=== PATIENT | female | born 1985 | race American Indian/Alaskan Native ===

== ENCOUNTER 2016-11-29 12:25 | Emergency (ER) | payer MEDICAID ==
[2016-11-29] MEDS ORDERED: DUONEB 0.5 MG-3 MG/3 ML SOLN IH ONE (14:24)
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
[2016-11-29 16:13] VITALS: BP 116/81
== END 2016-11-29 16:23 | disposition home or self-care (01) ==
LOC: ED 12:25
DX: J45.909 Unspecified asthma, uncomplicated (principal); Z90.89 Acquired absence of other organs; Z91.018 Allergy to other foods

== ENCOUNTER 2019-01-27 21:04 | Emergency (ER) | payer MEDICAID, OTHER ==
[2019-01-27] MEDS ORDERED: IBUPROFEN PO ONE (21:26)
[2019-01-27] MEDS ORDERED: ULTRAM PO ONE (21:27)
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
[2019-01-27 21:53] VITALS: BP 138/97
[2019-01-28 00:13] LABS: HCG Qualitative,Urine Negative (Negative)
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
== END 2019-01-28 02:04 | disposition home or self-care (01) ==
LOC: ED 21:04
DX: S39.012A Strain of muscle, fascia and tendon of lower back, initial encounter (principal); S80.02XA Contusion of left knee, initial encounter; J45.909 Unspecified asthma, uncomplicated; Z91.018 Allergy to other foods; V49.49XA Driver injured in collision with other motor vehicles in traffic accident, initial encounter; Y93.89 Activity, other specified; Y92.488 Other paved roadways as the place of occurrence of the external cause; Y99.8 Other external cause status
CPT/HCPCS: 72100; 81025; 99284

== ENCOUNTER 2019-03-11 16:15 | Emergency (ER) | payer MEDICAID ==
[2019-03-11] MEDS ORDERED: DUONEB *Not for PRN Use IH ONE (16:49)
[2019-03-11] MEDS ORDERED: DELTASONE PO ONE (16:49)
--- NOTE | 2019-03-11 16:49 | Emergency Department Report ---
Blank Doc - Documentation Documentation: This is a 33-year-old female that presents with asthma exacerbation. Exam: wheezing This initial assessment/diagnostic orders/clinical plan/treatment(s) is/are subject to change based on patient's health status, clinical progression and re- assessment by fellow clinical providers in the ED. Further treatment and workup at subsequent clinical providers discretion. Patient/guardians urged not to elope from the ED as their condition may be serious if not clinically assessed and managed. Initial orders include: 1- Patient sent to [facility] for further evaluation and treatment 2- breathing treatment/steroids
--- NOTE | 2019-03-11 18:14 | XRay Report ---
PROCEDURE: XR CHEST ROUTINE 2V TECHNIQUE: PA and lateral chest radiographs were obtained. HISTORY: sob COMPARISONS: None. FINDINGS: Heart: Normal. Mediastinum/Vessels: Normal. Lungs/Pleural space: No infiltrate, effusion, or pneumothorax. Bony thorax: No acute osseous abnormality. IMPRESSION: No pulmonary infiltrates are identified. This document is electronically signed by Marianna Ortega MD., March 11 2019 06:12:26 PM ET
[2019-03-11] MEDS ORDERED: PROVENTIL IH ONE (19:14)
[2019-03-11 19:21] VITALS: BP 105/64
--- NOTE | 2019-03-11 20:35 | Emergency Department Report ---
- General Chief Complaint: Dyspnea/Respdistress Stated Complaint: ASTHMA/EMILIE Time Seen by Provider: 03/11/19 16:47 Source: patient Mode of arrival: Ambulatory Limitations: No Limitations - History of Present Illness Initial Comments: This is a 33-year-old female that presents with asthma exacerbation. symptoms include cough productive yellow thick congestion wheezing no fever no n/v no dizziness no cp no back pain symptoms exacerbated by environmental exposure symptoms relieved by rest and albuterol inhaler. MD Complaint: rhinorrhea, nasal congestion, sinus pain Onset/Timin -: days(s) Severity: moderate Severity scale (0 -10): 5 Quality: other (wheezing ) Consistency: intermittent Improves With: other (albuterol ) Worsens With: activity, other (environmental exposure ) Associated Symptoms: chills, myalgias, rhinorrhea, nasal congestion, sore throat, cough - Related Data Previous Rx's Medication Instructions Recorded Last Taken Type Cetirizine HCl [ZyrTEC] 10 mg PO DAILY #30 tab.chew 06/15/16 Unknown Rx Albuterol Sulfate [Ventolin HFA] 2 puff IH Q4H PRN #1 hfa.aer.ad 11/29/16 Unknown Rx predniSONE [Deltasone] 30 mg PO QDAY #15 tab 11/29/16 Unknown Rx Naproxen [Naprosyn] 500 mg PO BID #20 tablet 01/28/19 Unknown Rx methOCARBAMOL [Robaxin TAB] 500 mg PO Q8HR PRN #20 tablet 01/28/19 Unknown Rx ALBUTEROL Inhaler (OR & NICU) 2 puff IH QID PRN #1 inhalation 03/11/19 Unknown Rx [ProAir HFA Inhaler] Azithromycin [Zithromax Z-AMY] 250 mg PO DAILY #6 tab 03/11/19 Unknown Rx Benzonatate [Tessalon Perles] 100 mg PO Q8HR PRN #30 capsule 03/11/19 Unknown Rx Ibuprofen [Motrin 800 MG tab] 800 mg PO Q8HR PRN #30 tablet 03/11/19 Unknown Rx predniSONE [Deltasone] 40 mg PO QDAY 5 Days #10 tab 03/11/19 Unknown Rx Allergies Allergy/AdvReac Type Severity Reaction Status Date / Time strawberry Allergy Swelling Verified 11/29/16 12:34 ED Review of Systems ROS: Stated complaint: ASTHMA/EMILIE Other details as noted in HPI Constitutional: denies: chills, fever Eyes: denies: eye pain, eye discharge, vision change ENT: denies: ear pain, throat pain Respiratory: denies: cough, shortness of breath, wheezing Cardiovascular: denies: chest pain, palpitations Endocrine: no symptoms reported Gastrointestinal: denies: abdominal pain, nausea, diarrhea Genitourinary: denies: urgency, dysuria, discharge Musculoskeletal: denies: back pain, joint swelling, arthralgia Skin: denies: rash, lesions Neurological: denies: headache, weakness, paresthesias Psychiatric: denies: anxiety, depression Hematological/Lymphatic: denies: easy bleeding, easy bruising ED Past Medical Hx - Past Medical History Previous Medical History?: Yes Hx Asthma: Yes Additional medical history: Vaginal delivery x 7 - Surgical History Past Surgical History?: Yes Additional Surgical History: TONSILLECTOMY - Social History Smoking Status: Never Smoker Substance Use Type: None - Medications Home Medications: Home Medications Medication Instructions Recorded Confirmed Last Taken Type Cetirizine HCl [ZyrTEC] 10 mg PO DAILY #30 tab.chew 06/15/16 Unknown Rx Albuterol Sulfate [Ventolin HFA] 2 puff IH Q4H PRN #1 hfa.aer.ad 11/29/16 Unknown Rx predniSONE [Deltasone] 30 mg PO QDAY #15 tab 11/29/16 Unknown Rx Naproxen [Naprosyn] 500 mg PO BID #20 tablet 01/28/19 Unknown Rx methOCARBAMOL [Robaxin TAB] 500 mg PO Q8HR PRN #20 tablet 01/28/19 Unknown Rx ALBUTEROL Inhaler (OR & NICU) 2 puff IH QID PRN #1 inhalation 03/11/19 Unknown Rx [ProAir HFA Inhaler] Azithromycin [Zithromax Z-AMY] 250 mg PO DAILY #6 tab 03/11/19 Unknown Rx Benzonatate [Tessalon Perles] 100 mg PO Q8HR PRN #30 capsule 03/11/19 Unknown Rx Ibuprofen [Motrin 800 MG tab] 800 mg PO Q8HR PRN #30 tablet 03/11/19 Unknown Rx predniSONE [Deltasone] 40 mg PO QDAY 5 Days #10 tab 03/11/19 Unknown Rx ED Physical Exam - General Limitations: No Limitations General appearance: alert, in no apparent distress - Head Head exam: Present: atraumatic, normocephalic - Eye Eye exam: Present: normal appearance, PERRL, EOMI Pupils: Present: normal accommodation - ENT ENT exam: Present: normal orophraynx, mucous membranes moist, TM's normal bilaterally, normal external ear exam - Neck Neck exam: Present: normal inspection, full ROM, lymphadenopathy. Absent: tenderness, meningismus, thyromegaly - Respiratory Respiratory exam: Present: wheezes, chest wall tenderness (right lateral chest wall pain ). Absent: respiratory distress, rales, rhonchi, stridor, prolonged expiratory - Cardiovascular Cardiovascular Exam: Present: regular rate, normal rhythm, normal heart sounds. Absent: systolic murmur, diastolic murmur, rubs, gallop - GI/Abdominal GI/Abdominal exam: Present: soft, normal bowel sounds. Absent: distended, tenderness, guarding, rebound, rigid, bruit - Rectal Rectal exam: Present: deferred - Extremities Exam Extremities exam: Present: normal inspection, full ROM, normal capillary refill - Back Exam Back exam: Present: normal inspection, full ROM. Absent: tenderness, CVA tenderness (R), CVA tenderness (L), muscle spasm, paraspinal tenderness, rash noted - Neurological Exam Neurological exam: Present: alert, oriented X3, CN II-XII intact, normal gait, reflexes normal - Psychiatric Psychiatric exam: Present: normal affect, normal mood - Skin Skin exam: Present: warm, dry, intact, normal color. Absent: rash ED Course Vital Signs 03/11/19 03/11/19 16:48 19:18 Temperature 98.2 F 97.9 F Pulse Rate 96 H 88 Respiratory 20 18 Rate Blood Pressure 140/67 Blood Pressure 105/64 [Right] O2 Sat by Pulse 98 99 Oximetry ED Medical Decision Making - Radiology Data Radiology results: report reviewed, image reviewed Ordering Physician: JOEL RAMIRES NP Date of Service: 03/11/19 Procedure(s): XR chest routine 2V Accession Number(s): [id number] cc: JOEL RAMIRES NP Fluoro Time In Minutes: PROCEDURE: XR CHEST ROUTINE 2V TECHNIQUE: PA and lateral chest radiographs were obtained. HISTORY: sob COMPARISONS: None. FINDINGS: Heart: Normal. Mediastinum/Vessels: Normal. Lungs/Pleural space: No infiltrate, effusion, or pneumothorax. Bony thorax: No acute osseous abnormality. IMPRESSION: No pulmonary infiltrates are identified. This document is electronically signed by Marianna Ortega MD., March 11 2019 06:12:26 PM ET Transcribed By: [facility] Dictated By: MARIANNA ORTEGA M.D. Electronically Authenticated By: MARIANNA ORTEGA M.D. Signed Date/Time: 03/11/191813 DD/ 48 TD/TT: 03/11/191749 - Medical Decision Making Wheezing is improved, pt it ambulatory in ed without increase wheezing or sob , pt states breathing is to baseline plant dc to home with rx for albuterol , prednisone, azithromycin, ibuprofen, tessalon pearls, pt verbalized agreement and understanding of discharge plan. Critical care attestation.: If time is entered above; I have spent that time in minutes in the direct care of this critically ill patient, excluding procedure time. ED Disposition Clinical Impression: Bronchitis Disposition: DC-01 TO HOME OR SELFCARE Is pt being admited?: No Does the pt Need Aspirin: No Condition: Stable Instructions: Chronic Bronchitis (ED), Upper Respiratory Infection (ED) Prescriptions: predniSONE [Deltasone] 40 mg PO QDAY 5 Days #10 tab Ibuprofen [Motrin 800 MG tab] 800 mg PO Q8HR PRN #30 tablet PRN Reason: pain fever ALBUTEROL Inhaler (OR & NICU) [ProAir HFA Inhaler] 2 puff IH QID PRN #1 inhalation PRN Reason: Shortness Of Breath Benzonatate [Tessalon Perles] 100 mg PO Q8HR PRN #30 capsule PRN Reason: Cough Azithromycin [Zithromax Z-AMY] 250 mg PO DAILY #6 tab Referrals: PRIMARY CARE, [Primary Care Provider] - 3-5 Days Forms: Work/School Release Form(ED) Time of Disposition: 20:35
== END 2019-03-11 20:42 | disposition home or self-care (01) ==
LOC: ED 16:15
DX: J45.901 Unspecified asthma with (acute) exacerbation (principal); Z91.018 Allergy to other foods; Z79.1 Long term (current) use of non-steroidal anti-inflammatories (NSAID); Z90.89 Acquired absence of other organs
CPT/HCPCS: 71046; 94640; 99284; J7512

== ENCOUNTER 2019-11-29 19:12 | Emergency (ER) | payer MEDICAID ==
[2019-11-29 19:32] VITALS: BP 147/86
--- NOTE | 2019-11-29 20:02 | Event Note ---
ED Screening Note Date of service: 11/29/19 Time: 19:59 ED Screening Note: This is a 34 y.o. F. that presents to the ER with chest pain that is worse with cough. PMH of asthma Denies radiating pain, fever, chills, nausea, vomiting, palpitations, SOB, or wheezing. This initial assessment/diagnostic orders/clinical plan/treatment(s) is/are subject to change based on patients health status, clinical progression and re- assessment by fellow clinical providers in the ED. Further treatment and workup at subsequent clinical providers discretion. Patient/guardian urged not to elope from the ED as their condition may be serious if not clinically assessed and managed. Initial orders include: CXR
--- NOTE | 2019-11-29 20:45 | XRay Report ---
CHEST 2 VIEWS INDICATION / CLINICAL INFORMATION: Cough. COMPARISON: None currently available. FINDINGS: SUPPORT DEVICES: None. HEART / MEDIASTINUM: The heart size and pulmonary vasculature are normal. LUNGS / PLEURA: No significant pulmonary or pleural abnormality. No pneumothorax. ADDITIONAL FINDINGS: No significant additional findings. IMPRESSION: No acute abnormality. Signer Name: Blaine Johnston MD Signed: 11/29/2019 8:41 PM Workstation Name: [id number]
[2019-11-29] MEDS ORDERED: SODIUM CHLORIDE 0.9% 1000 ML 1,000 ML IV ONE ×2 (21:31→23:26)
--- NOTE | 2019-11-29 21:54 | Emergency Department Report ---
HPI - General Chief Complaint: Chest Pain Time Seen by Provider: 11/29/19 19:59 - HPI HPI: Room 38 The patient is a 34-year-old female present with a chief complaint of chest pain with cough. The patient states yesterday she developed a cough and a soreness in her chest whenever she coughs. Patient states the cough is been nonproductive. Patient denies history of fever. Patient admits to rhinorrhea for 2 days. Patient states she only has the pain in her chest whenever she coughs. ED Past Medical Hx - Past Medical History Previous Medical History?: Yes Hx Asthma: Yes Additional medical history: Vaginal delivery x 7 - Surgical History Past Surgical History?: Yes Additional Surgical History: TONSILLECTOMY - Social History Smoking Status: Never Smoker Substance Use Type: None - Medications Home Medications: Home Medications Medication Instructions Recorded Confirmed Last Taken Type Cetirizine HCl [ZyrTEC] 10 mg PO DAILY #30 tab.chew 06/15/16 Unknown Rx Albuterol Sulfate [Ventolin HFA] 2 puff IH Q4H PRN #1 hfa.aer.ad 11/29/16 Unknown Rx predniSONE [Deltasone] 30 mg PO QDAY #15 tab 11/29/16 Unknown Rx Naproxen [Naprosyn] 500 mg PO BID #20 tablet 01/28/19 Unknown Rx methOCARBAMOL [Robaxin TAB] 500 mg PO Q8HR PRN #20 tablet 01/28/19 Unknown Rx Albuterol INH(or & Nicu Only) 2 puff IH QID PRN #1 inhalation 03/11/19 Unknown Rx [ProAir HFA Inhaler] Azithromycin [Zithromax Z-AMY] 250 mg PO DAILY #6 tab 03/11/19 Unknown Rx Benzonatate [Tessalon Perles] 100 mg PO Q8HR PRN #30 capsule 03/11/19 Unknown Rx Ibuprofen [Motrin 800 MG tab] 800 mg PO Q8HR PRN #30 tablet 03/11/19 Unknown Rx predniSONE [Deltasone] 40 mg PO QDAY 5 Days #10 tab 03/11/19 Unknown Rx Benzonatate [Tessalon Perles] 100 mg PO Q8HR #30 capsule 11/30/19 Unknown Rx Ibuprofen [Motrin 800 MG tab] 800 mg PO Q8HR PRN #20 tablet 11/30/19 Unknown Rx levoFLOXacin [Levaquin TAB] 500 mg PO QDAY #10 tablet 11/30/19 Unknown Rx traMADoL [Ultram] 50 mg PO Q6HR PRN #10 tablet 11/30/19 Unknown Rx ED Review of Systems ROS: Stated complaint: CHEST PAIN AND ABD PAIN Other details as noted in HPI Constitutional: denies: fever Eyes: denies: eye pain ENT: congestion Respiratory: cough Physical Exam - Physical Exam Vital Signs: Vital Signs 11/29/19 19:24 Temperature 98.4 F Pulse Rate 114 H Respiratory 12 Rate Blood Pressure 147/86 O2 Sat by Pulse 99 Oximetry Physical Exam: GENERAL: The patient is well-developed well-nourished female lying on stretcher not appearing to be in acute distress. [] HEENT: Normocephalic. Atraumatic. Extraocular motions are intact. Patient has moist mucous membranes. NECK: Supple. Trachea midline CHEST/LUNGS: Clear to auscultation. There is no respiratory distress noted. HEART/CARDIOVASCULAR: Regular. There is tachycardia. There is no gallop rub or murmur. ABDOMEN: Abdomen is soft, nontender. Patient has normal bowel sounds. There is no abdominal distention. SKIN: There is no rash. There is no edema. There is no diaphoresis. NEURO: The patient is awake, alert, and oriented. The patient is cooperative. The patient has normal speech and gait. MUSCULOSKELETAL: There is no evidence of acute injury. ED Course Vital Signs 11/29/19 19:24 Temperature 98.4 F Pulse Rate 114 H Respiratory 12 Rate Blood Pressure 147/86 O2 Sat by Pulse 99 Oximetry - Reevaluation(s) Reevaluation #1: 11/30/19 23:42 Heart rate 107 ED Medical Decision Making - Lab Data Result diagrams: 11/29/19 23:39 11/29/19 23:39 Laboratory Tests 11/29/19 11/29/19 11/29/19 23:39 23:39 23:39 WBC 14.4 H RBC 5.27 H Hgb 10.8 Hct 34.9 MCV 66 L MCH 21 L MCHC 31 RDW 15.4 H Plt Count 226 Lymph % (Auto) 13.7 [place] % (Auto) 5.9 Eos % (Auto) 1.7 Baso % (Auto) 0.2 Lymph # 2.0 [place] # 0.8 Eos # 0.2 Baso # 0.0 Seg Neutrophils % 78.5 H Seg Neutrophils # 11.3 H D-Dimer 152.63 Sodium 140 Potassium 3.5 L Chloride 107.1 H Carbon Dioxide 21 L Anion Gap 15 BUN 11 Creatinine 0.5 L Estimated GFR > 60 BUN/Creatinine Ratio 22 Glucose 102 H Calcium 8.4 Total Creatine Kinase 21 L CK-MB (CK-2) < 1.0 CK-MB (CK-2) Rel Index 4.7 H Troponin T < 0.010 TSH Free T4 HCG, Qual 11/29/19 11/29/19 23:39 23:39 WBC RBC Hgb Hct MCV MCH MCHC RDW Plt Count Lymph % (Auto) [place] % (Auto) Eos % (Auto) Baso % (Auto) Lymph # [place] # Eos # Baso # Seg Neutrophils % Seg Neutrophils # D-Dimer Sodium Potassium Chloride Carbon Dioxide Anion Gap BUN Creatinine Estimated GFR BUN/Creatinine Ratio Glucose Calcium Total Creatine Kinase CK-MB (CK-2) CK-MB (CK-2) Rel Index Troponin T TSH 2.140 Free T4 1.26 HCG, Qual Negative - Radiology Data Radiology results: report reviewed (Chest x-ray), image reviewed (Chest x-ray) interpreted by me: Chest x-ray-no focal infiltrates, no pneumothorax Findings [facility] [address] [place] [address] XRay Report Signed Patient: TOÑITO HAJI MR#: [id number] : 1985 Acct:[id number] Age/Sex: 34 / F ADM Date: 11/29/19 Loc: ED Attending Dr: Ordering Physician: RESHMA TAYLOR Date of Service: 11/29/19 Procedure(s): XR chest routine 2V Accession Number(s): [id number] cc: RESHMA TAYLOR Fluoro Time In Minutes: CHEST 2 VIEWS INDICATION / CLINICAL INFORMATION: Cough. COMPARISON: None currently available. FINDINGS: SUPPORT DEVICES: None. HEART / MEDIASTINUM: The heart size and pulmonary vasculature are normal. LUNGS / PLEURA: No significant pulmonary or pleural abnormality. No pneumothorax. ADDITIONAL FINDINGS: No significant additional findings. IMPRESSION: No acute abnormality. Signer Name: Blaine Johnston MD Signed: 11/29/2019 8:41 PM Workstation Name: [id number] Transcribed By: RT Dictated By: Blaine Johnston MD Electronically Authenticated By: Blaine Johnston MD Signed Date/Time: 11/29/192040 DD/ 38 TD/TT: - Differential Diagnosis Pneumonia, bronchitis, influenza, PE Critical care attestation.: If time is entered above; I have spent that time in minutes in the direct care of this critically ill patient, excluding procedure time. ED Disposition Clinical Impression: Acute bronchitis, Costochondritis Disposition: TO HOME OR SELFCARE Is pt being admited?: No Does the pt Need Aspirin: No Condition: Stable Instructions: Acute Bronchitis (ED) Additional Instructions: Return to the emergency department should you develop worsening symptoms, inability to tolerate food or liquids, high fever or any other concerns Prescriptions: levoFLOXacin [Levaquin TAB] 500 mg PO QDAY #10 tablet Ibuprofen [Motrin 800 MG tab] 800 mg PO Q8HR PRN #20 tablet PRN Reason: Pain, Moderate (4-6) Benzonatate [Tessalon Perles] 100 mg PO Q8HR #30 capsule traMADoL [Ultram] 50 mg PO Q6HR PRN #10 tablet PRN Reason: Pain Referrals: EMERALD BAUER [Other] - 3-5 Days Time of Disposition: 00:42
[2019-11-30 00:11] LABS: Basophils % (Auto) 0.2 % (0.0-1.8); Eosinophils # (Auto) 0.2 K/mm3 (0.0-0.4); Eosinophils % (Auto) 1.7 % (0.0-4.3); Hematocrit 34.9 % (30.3-42.9); Hemoglobin 10.8 gm/dl (10.1-14.3); Lymphocytes % (Auto) 13.7 % (13.4-35.0); Mean Corpuscular HGB Conc 31 % (30-34); Monocytes # (Auto) 0.8 K/mm3 (0.0-0.8); Monocytes % (Auto) 5.9 % (0.0-7.3); Platelet Count 226 K/mm3 (140-440); Red Blood Count 5.27 M/mm3 (3.65-5.03); Red Cell Distribution Width 15.4 % (13.2-15.2)
[2019-11-30 00:12] LABS: Mean Corpuscular Volume 66 fl (79-97)
[2019-11-30 00:16] LABS: BUN/Creatinine Ratio 22; Blood Urea Nitrogen 11 mg/dL (7-17); Calcium 8.4 mg/dL (8.4-10.2); Hemolysis Index 17
[2019-11-30 00:17] LABS: Creatine Kinase MB < 1.0 ng/mL (0.0-4.0)
[2019-11-30 00:26] LABS: Free T4 (Free Thyroxine) 1.26 ng/dL (0.76-1.46)
== END 2019-11-30 01:05 | disposition home or self-care (01) ==
LOC: ED 19:12
DX: J20.9 Acute bronchitis, unspecified (principal); M94.0 Chondrocostal junction syndrome [Tietze]; J45.909 Unspecified asthma, uncomplicated; Z79.1 Long term (current) use of non-steroidal anti-inflammatories (NSAID); Z79.899 Other long term (current) drug therapy; Z90.89 Acquired absence of other organs; Z91.018 Allergy to other foods
CPT/HCPCS: 36415; 71046; 80048; 82550; 82553; 84439; 84443; 84484; 84703; 85025; 85379; 99284; J7030

== ENCOUNTER 2021-06-19 14:54 | Emergency (ER) | payer MEDICAID ==
[2021-06-19] MEDS ORDERED: predniSONE 50 MG TAB PO ONE (15:56)
--- NOTE | 2021-06-19 15:57 | Emergency Department Report ---
ED Asthma HPI - General Chief Complaint: Adult Asthma Stated Complaint: ASTHMA X2 Source: patient Mode of arrival: Ambulatory Limitations: No Limitations - History of Present Illness Initial Comments: 36-year-old female presents to the ER today with complaints of URI symptoms and asthma. Patient states that 2 days ago she started with shortness of breath, wheezing, productive cough, and chest discomfort mainly when she coughs. She reports associated rhinorrhea and nasal congestion. She denies any fever or chills. She states that she thinks that the temperature difference between her job and going to her grandmother's house 2 days ago triggered her asthma/cold symptoms. She denies any apparent ill contacts or recent travel. She has not gotten a COVID-19 test. She did not get the COVID-19 vaccine. She denies any GI or symptoms. She states that she has been out of her asthma medications for about a year. She states that she is never been admitted for asthma in the past. She denies any tobacco use. MD Complaint: shortness of breath, wheezing, other (cough) -: Gradual, days(s) (2) - Related Data Previous Rx's Medication Instructions Recorded Last Taken Type Albuterol Sulfate [Ventolin HFA] 2 puff IH Q4H PRN #1 hfa.aer.ad 11/29/16 Unknown Rx ALBUTEROL NEB's [Proventil 0.083% 2.5 mg IH QID PRN #30 neb 06/19/21 Unknown Rx NEBS] Albuterol Mdi (or & Nicu Only) 2 puff IH QID PRN #8.5 gram 06/19/21 Unknown Rx [ProAir HFA Inhaler] Cetirizine HCl [ZyrTEC 10mg cap] 10 mg PO DAILY #30 capsule 06/19/21 Unknown Rx predniSONE [Deltasone] 50 mg PO QDAY #5 tab 06/19/21 Unknown Rx Allergies Allergy/AdvReac Type Severity Reaction Status Date / Time strawberry Allergy Swelling Verified 11/29/16 12:34 ED Review of Systems ROS: Stated complaint: ASTHMA X2 Other details as noted in HPI ED Past Medical Hx - Past Medical History Previous Medical History?: Yes Hx Asthma: Yes Additional medical history: Vaginal delivery x 7 - Surgical History Past Surgical History?: Yes Additional Surgical History: TONSILLECTOMY - Social History Smoking Status: Current Every Day Smoker Substance Use Type: Alcohol - Medications Home Medications: Home Medications Medication Instructions Recorded Confirmed Last Taken Type Albuterol Sulfate [Ventolin HFA] 2 puff IH Q4H PRN #1 hfa.aer.ad 11/29/16 Unknown Rx ALBUTEROL NEB's [Proventil 0.083% 2.5 mg IH QID PRN #30 neb 06/19/21 Unknown Rx NEBS] Albuterol Mdi (or & Nicu Only) 2 puff IH QID PRN #8.5 gram 06/19/21 Unknown Rx [ProAir HFA Inhaler] Cetirizine HCl [ZyrTEC 10mg cap] 10 mg PO DAILY #30 capsule 06/19/21 Unknown Rx predniSONE [Deltasone] 50 mg PO QDAY #5 tab 06/19/21 Unknown Rx ED Physical Exam - General Limitations: No Limitations General appearance: alert, in no apparent distress, obese - Head Head exam: Present: atraumatic, normocephalic, normal inspection - Eye Eye exam: Present: normal appearance, PERRL, EOMI Pupils: Present: normal accommodation - Neck Neck exam: Present: normal inspection, full ROM. Absent: meningismus - Respiratory Respiratory exam: Present: normal lung sounds bilaterally, wheezes (mild left upper lung rubi). Absent: rales, rhonchi, stridor - Cardiovascular Cardiovascular Exam: Present: regular rate, normal rhythm, normal heart sounds - GI/Abdominal GI/Abdominal exam: Present: soft. Absent: distended, tenderness, guarding, rebound - Back Exam Back exam: Present: normal inspection - Neurological Exam Neurological exam: Present: alert, oriented X3, CN II-XII intact, normal gait - Psychiatric Psychiatric exam: Present: normal affect, normal mood - Skin Skin exam: Present: intact ED Course Vital Signs 06/19/21 06/19/21 15:55 17:10 Temperature 98.2 F Pulse Rate 103 H Pulse Rate [ 88 Anterior Bilateral Throughout] Pulse Rate [ 99 H Bilateral Throughout] Respiratory 20 Rate Respiratory 16 Rate [Anterior Bilateral Throughout] Blood Pressure 135/79 [Right] O2 Sat by Pulse 99 Oximetry ED Medical Decision Making - Radiology Data Radiology results: report reviewed Patient: TOÑITO HAJI MR#: [id number] : 1985 Acct:[id number] Age/Sex: 36 / F ADM Date: 06/19/21 Loc: ED Attending Dr: Ordering Physician: TIERRA LEPE Date of Service: 06/19/21 Procedure(s): XR chest routine 2V Accession Number(s): [id number] cc: TIERRA LEPE Fluoro Time In Minutes: CHEST 2 VIEWS INDICATION / CLINICAL INFORMATION: cough/sob. COMPARISON: 11/29/2019 FINDINGS: SUPPORT DEVICES: None. HEART / MEDIASTINUM: No significant abnormality. LUNGS / PLEURA: No significant pulmonary or pleural abnormality. No pneumothorax. ADDITIONAL FINDINGS: No significant additional findings. IMPRESSION: 1. No acute findings. Signer Name: Satya Arriola MD Signed: 06/19/2021 4:35 PM Workstation Name: [id number] Transcribed By: SHEELA Dictated By: SATYA ARRIOLA MD Electronically Authenticated By: SATYA ARRIOLA MD Signed Date/Time: 06/19/211634 DD/ 34 TD/TT: - Medical Decision Making Chest x-ray shows nothing acute. Patient reports feeling better after breathing treatment. Repeat chest exam shows improvement of the wheezing. Patient currently not in any respiratory distress. The patient is now resting comfortably, is alert and has normal mental status and is neurologically intact. The patient appears well and there is no significant dehydration. There is no signs of systemic toxicity. The history, exam, diagnostic testing and current condition do not demonstrate an infectious process such as meningitis, severe pneumonia, acute respiratory distress syndrome, severe asthma exacerbation, sepsis or other serious viral/bacterial infection requiring further testing, treatment, consultation or admission at this time. The vital signs have been stable. Discussed x-ray results, diagnosis and treatment plan with patient. The patient's condition is stable and appropriate for discharge. The patient will pursue further outpatient evaluation with the primary care physician. Critical care attestation.: If time is entered above; I have spent that time in minutes in the direct care of this critically ill patient, excluding procedure time. ED Disposition Clinical Impression: URI (upper respiratory infection), Asthma Disposition: HOME / SELF CARE / HOMELESS Is pt being admited?: No Does the pt Need Aspirin: No Condition: Stable Instructions: Upper Respiratory Infection, Adult, Asthma, Adult, [id number], Asthma (ED) Additional Instructions: I recommend that you use the albuterol MDI or the nebulizer every 4-6hrs for wheezing or shortness of breath. Take the prednisone and the zyrtec as prescribed. He can take Tylenol and/or ibuprofen as needed for pain. I do recommend that you get a thermometer to monitor your temperatures, and also you can get pulse oximeter from [id number] to monitor your oxygen status. You likely have a viral illness associated with your asthma, and COVID-19 is in the differential of possibilities. I do recommend that you get an outpatient COVID-19 test. In the meantime you may want to isolate and quarantine yourself and stay away from anyone who is elderly, immunocompromised or chronically ill. I also recommend follow-up with your primary care doctor listed on your discharge instructions. If your symptoms worsen, with worsening shortness of breath, persistently low oxygen status less than 93% on room air, and fever of 100.5 or higher than return to the ER. Prescriptions: predniSONE [Deltasone] 50 mg PO QDAY #5 tab Albuterol Mdi (or & Nicu Only) [ProAir HFA Inhaler] 2 puff IH QID PRN #8.5 gram PRN Reason: Shortness Of Breath ALBUTEROL NEB's [Proventil 0.083% NEBS] 2.5 mg IH QID PRN #30 neb PRN Reason: Wheezing Cetirizine HCl [ZyrTEC 10mg cap] 10 mg PO DAILY #30 capsule Referrals: [facility] [Provider Group] - 3-5 Days CHELO MCKEON MD [Staff Physician] - 3-5 Days Forms: Work/School Release Form(ED) Time of Disposition: 17:44 Print Language: DANISH
--- NOTE | 2021-06-19 16:40 | XRay Report ---
CHEST 2 VIEWS INDICATION / CLINICAL INFORMATION: cough/sob. COMPARISON: 11/29/2019 FINDINGS: SUPPORT DEVICES: None. HEART / MEDIASTINUM: No significant abnormality. LUNGS / PLEURA: No significant pulmonary or pleural abnormality. No pneumothorax. ADDITIONAL FINDINGS: No significant additional findings. IMPRESSION: 1. No acute findings. Signer Name: Satya Arriola MD Signed: 06/19/2021 4:35 PM Workstation Name: [id number]
[2021-06-19] MEDS: IPRATROPIUM/ALBUTEROL SULFATE 3 ML AMPUL.NEB IH ONE (17:12)
[2021-06-19] MEDS: predniSONE 50 MG TAB PO ONE (18:12)
[2021-06-19 18:59] VITALS: BP 137/86
== END 2021-06-19 18:58 | disposition home or self-care (01) ==
LOC: ED 14:54
DX: J06.9 Acute upper respiratory infection, unspecified (principal); J45.909 Unspecified asthma, uncomplicated; Z98.890 Other specified postprocedural states; F17.200 Nicotine dependence, unspecified, uncomplicated; Z91.018 Allergy to other foods
CPT/HCPCS: 71046; 94640; 99283; J7512; 94644